=== PATIENT | female | born 1990 | race Caucasian/White ===

== ENCOUNTER 2021-11-26 05:40 | Outpatient (CLI) | payer MEDICAID ==
[2021-11-26 07:03] VITALS: BP 117/87
[2021-11-26] MEDS ORDERED: ESCITALOPRAM OXALATE 10 MG TABLET PO SCH (07:15)
[2021-11-26] MEDS ORDERED: ESCI-8 PO ×2 (08:37→08:39)
== END 2021-11-26 08:10 | disposition home or self-care (01) ==
LOC: CSU 05:40
PROVIDERS: ATTEND Psychiatry & Neurology Psychiatry
DX: F33.1 Major depressive disorder, recurrent, moderate (principal); F41.9 Anxiety disorder, unspecified
CPT/HCPCS: 90792; Z7610